=== PATIENT | male | born 1960 | race Caucasian/White ===

== ENCOUNTER 2019-01-13 23:16 | Emergency (ER) | payer SELFPAY ==
[~2019-01-13] VITALS: Ht 167.6 cm; Wt 77.1 kg
--- NOTE | 2019-01-13 23:23 | NUR ---
2323 - Patient to ER bed Ch1 to gown for evaluation. Side rails up. Report given to RUSLAN Lim.
--- NOTE | 2019-01-13 23:25 | NUR ---
2325 - ER at bedside examining patient.
--- NOTE | 2019-01-13 23:34 | NUR ---
2334 - Patient given written and verbal discharge instructions and verbalizes understanding. ER MD discussed with patient the results and treatment provided. Patient in stable condition. ID arm band removed. Patient educated on pain management and to follow up with PMD. Pain Scale 0. Opportunity for questions provided and answered. Medication side effect fact sheet provided. A&OX4, ambulatory w/ steady gait.
[2019-01-13 23:35] VITALS: BP_SYST 140
[2019-01-13 23:39] VITALS: BP_SYST 140
== END 2019-01-13 23:39 ==
LOC: SED 23:16
DX: F10.129 Alcohol abuse with intoxication, unspecified (principal)
CPT/HCPCS: 99283